=== PATIENT | female | born 2000 | race Caucasian/White ===

== ENCOUNTER 2023-07-17 05:23 | Emergency (ER) | payer OTHER ==
[2023-07-17 05:33] VITALS: BP 131/85; PULSE 88; RESP 19; TEMP 97.7; BMI 39.0
[2023-07-17] MEDS ORDERED: ACETAMINOPHEN 500 MG TABLET (FP) ONE (06:49)
[2023-07-17] MEDS: ACETAMINOPHEN 500 MG TABLET (FP) PO ONE (06:50)
[2023-07-17 07:10] LABS: EPI CELLS 17 /uL (0-25.1); HCG,QUALITATIVE URINE Negative; HYALINE CASTS 0 /uL (0-3.1); PH,URINE 5.5 (5.0-8.0); URINE APPEARANCE CLEAR; URINE BACTERIA 804 /uL (0-1359); URINE BILIRUBIN NEGATIVE (NEGATIVE); URINE COLOR YELLOW; URINE GLUCOSE (UA) NEGATIVE (NEGATIVE); URINE KETONE TRACE (NEGATIVE); URINE LEUK ESTERASE NEGATIVE (NEGATIVE); URINE NITRITE NEGATIVE (NEGATIVE); URINE PROTEIN NEGATIVE (NEGATIVE); URINE RBC 2015 /uL (0-23.9); URINE UROBILINOGEN 0.2 mg/dL (0.2-1.0); URINE WBC 21 /uL (0-25.8)
[2023-07-17] MEDS: LACTATED RINGERS SOLUTION 1000 ML INFUS.BAG IV ONE (08:43)
[2023-07-17 09:02] LABS: BASO % 0.3 % (0-2.0); EOS % 0.1 % (0-4.5); HEMATOCRIT 40.3 % (32.4-45.2); HEMOGLOBIN 13.3 GM/dL (10.7-15.3); LYMPH % 15.1 % (8-40); MCH 29.3 pg (25.7-33.7); MCHC 32.9 g/dl (32.0-36.0); MEAN PLT VOLUME 9.7 fl (7.5-11.1); MONO % 5.1 % (3.8-10.2); NEUT % 79.4 % (42.8-82.8); PLATELET COUNT 245 10^3/uL (134-434); RBC 4.53 M/mm3 (3.60-5.2); RDW 13.8 % (11.6-15.6); WHITE BLOOD COUNT 10.5 K/mm3 (4.0-10.0)
[2023-07-17 09:32] LABS: POTASSIUM 5.7 mmol/L (3.5-5.1)
[2023-07-17 09:35] LABS: BLOOD UREA NITROGEN 17.1 mg/dL (7-18); CALCIUM 8.7 mg/dL (8.5-10.1)
[2023-07-17 09:36] LABS: ALBUMIN 3.6 g/dl (3.4-5.0)
[2023-07-17 09:39] LABS: CREATININE 0.8 mg/dL (0.55-1.3)
[2023-07-17 09:40] LABS: BILIRUBIN,TOTAL 0.5 mg/dL (0.2-1); TOT PROT 7.8 g/dl (6.4-8.2)
[2023-07-17] MEDS ORDERED: TAMSULOSIN HCL 0.4 MG CAP ONE (12:03)
[2023-07-17] MEDS: TAMSULOSIN HCL 0.4 MG CAP PO ONE (12:10)
== END 2023-07-17 12:10 | disposition home or self-care (01) ==
LOC: JER 05:23
DX: R10.31 Right lower quadrant pain (principal); R31.9 Hematuria, unspecified; N20.0 Calculus of kidney
CPT/HCPCS: 36415; 74176-TC; 80053; 81003; 84703; 85025; 87086; 87491; 87591; 87661; 99284-25

== ENCOUNTER 2023-07-22 23:51 | Emergency (ER) | payer OTHER ==
[2023-07-22 23:58] VITALS: BP 121/80; PULSE 94; RESP 18; TEMP 97.7; BMI 35.2
[2023-07-23] MEDS: SODIUM CHLORIDE 0.9% 500 ML INFUS.BAG IV ONE (00:28)
[2023-07-23] MEDS ORDERED: morphine SULFATE 4 MG/ML VIAL ONE (00:30)
[2023-07-23 00:32] LABS: BASO % 0.3 % (0-2.0); EOS % 0.6 % (0-4.5); HEMATOCRIT 38.2 % (32.4-45.2); HEMOGLOBIN 12.7 GM/dL (10.7-15.3); LYMPH % 19.2 % (8-40); MCHC 33.2 g/dl (32.0-36.0); MEAN CELL VOLUME 87.4 fl (80-96); MEAN PLT VOLUME 9.6 fl (7.5-11.1); MONO % 5.5 % (3.8-10.2); NEUT % 74.4 % (42.8-82.8); PLATELET COUNT 225 10^3/uL (134-434); RBC 4.37 M/mm3 (3.60-5.2); RDW 13.9 % (11.6-15.6); WHITE BLOOD COUNT 9.7 K/mm3 (4.0-10.0)
[2023-07-23] MEDS: morphine CARPU-JECT 4 MG/1 ML DISP.SYRIN IVPUSH ONE (00:34)
[2023-07-23 00:50] LABS: POTASSIUM 4.4 mmol/L (3.5-5.1)
[2023-07-23 00:52] LABS: ALBUMIN 3.6 g/dl (3.4-5.0)
[2023-07-23 00:53] LABS: BLOOD UREA NITROGEN 20.4 mg/dL (7-18)
[2023-07-23 00:57] LABS: BILIRUBIN,TOTAL 0.4 mg/dL (0.2-1); TOT PROT 7.3 g/dl (6.4-8.2)
[2023-07-23 01:58] LABS: URINE APPEARANCE CLEAR; URINE BILIRUBIN NEGATIVE (NEGATIVE); URINE COLOR YELLOW; URINE GLUCOSE (UA) NEGATIVE (NEGATIVE); URINE KETONE NEGATIVE (NEGATIVE); URINE LEUK ESTERASE NEGATIVE (NEGATIVE); URINE NITRITE NEGATIVE (NEGATIVE); URINE PROTEIN NEGATIVE (NEGATIVE); URINE UROBILINOGEN 0.2 mg/dL (0.2-1.0)
[2023-07-23 02:01] LABS: HCG,QUALITATIVE URINE Negative
[2023-07-23] MEDS ORDERED: IBUPROFEN 600 MG TABLET (FP) PO ONE (05:02)
[2023-07-23] MEDS ORDERED: LIDOCAINE 4% PATCH TP ONE (05:03)
[2023-07-23] MEDS: IBUPROFEN 400 MG TABLET (FP) PO ONE (05:04)
[2023-07-23] MEDS: LIDOCAINE 5% TOPICAL PATCH TP ONE (05:05)
[2023-07-23] MEDS ORDERED: LIDOCAINE PATCH REMOVAL MC SCH (22:00)
== END 2023-07-23 05:12 | disposition home or self-care (01) ==
LOC: JER 23:51
PROC: 3E033NZ Introduction of Analgesics, Hypnotics, Sedatives into Peripheral Vein, Percutaneous Approach (ICD-10-PCS; principal; 2023-07-23)
DX: R10.9 Unspecified abdominal pain (principal); R30.0 Dysuria; R35.0 Frequency of micturition; A08.4 Viral intestinal infection, unspecified; N20.0 Calculus of kidney; K52.9 Noninfective gastroenteritis and colitis, unspecified; M62.838 Other muscle spasm
CPT/HCPCS: 36415; 74177-TC; 76775-TC; 80053; 81003; 84703; 85025; 87086; 93005; 93010; 99285-25; Q9967

== ENCOUNTER 2023-07-25 09:04 | Emergency (ER) | payer OTHER ==
[2023-07-25 09:18] VITALS: BP 145/71; PULSE 74; RESP 18; TEMP 97.3; BMI 36.1
[2023-07-25] MEDS ORDERED: NAPROXEN 500 MG TABLET ONE (11:10)
[2023-07-25] MEDS: NAPROXEN 500 MG TABLET PO ONE (11:11)
== END 2023-07-25 11:59 | disposition home or self-care (01) ==
LOC: JERFT 09:04
DX: R11.0 Nausea (principal); M54.50 Low back pain, unspecified; L03.012 Cellulitis of left finger
CPT/HCPCS: 99283-25

== ENCOUNTER 2024-08-25 23:36 | Emergency (ER) | payer OTHER ==
[2024-08-25 23:49] VITALS: BP 106/75; PULSE 88; RESP 18; TEMP 98.1; BMI 28.3
[2024-08-26] MEDS ORDERED: AZITHROMYCIN 500 MG TABLET ONE (01:09)
[2024-08-26] MEDS: AZITHROMYCIN 500 MG TABLET PO ONE (01:17)
== END 2024-08-26 01:20 | disposition home or self-care (01) ==
LOC: JER 23:36
DX: J32.9 Chronic sinusitis, unspecified (principal)
CPT/HCPCS: 0241U-QW; 99283-25

== ENCOUNTER 2024-12-19 09:16 | Emergency (ER) | payer OTHER ==
[2024-12-19 09:24] VITALS: BP 150/95; PULSE 81; RESP 18; TEMP 98.5; BMI 38.0
[2024-12-19] MEDS ORDERED: PSEUDOEPHEDRINE HCL 60 MG TABLET ONE (09:46)
[2024-12-19] MEDS ORDERED: ACETAMINOPHEN 500 MG TABLET (FP) ONE (09:47)
[2024-12-19] MEDS: ACETAMINOPHEN 500 MG TABLET (FP) PO ONE (09:50)
[2024-12-19] MEDS: PSEUDOEPHEDRINE HCL 30 MG TABLET PO ONE (09:50)
[2024-12-19 10:01] LABS: THROAT:GRP A STREP NOT DETECTED (NOTDETECTED)
[2024-12-19 12:08] LABS: HIV INTERPRETATION NEGATIVE (NEGATIVE)
[2024-12-19 16:45] LABS: HCV DIAGNOSTIC IN-HOUSE W/RFLX NON-REACTIVE (NONREACTIVE)
== END 2024-12-19 10:25 | disposition home or self-care (01) ==
LOC: JERFT 09:16
DX: J01.90 Acute sinusitis, unspecified (principal); R09.81 Nasal congestion; M79.10 Myalgia, unspecified site; R68.83 Chills (without fever); R42 Dizziness and giddiness; J02.9 Acute pharyngitis, unspecified
CPT/HCPCS: 36415; 86803; 87389; 87637-QW; 87651; 99283-25

== ENCOUNTER 2024-12-28 15:13 | Emergency (ER) | payer OTHER ==
[2024-12-28 15:29] VITALS: BP 140/92; PULSE 101; RESP 18; TEMP 98.7; BMI 38.0
[2024-12-28 16:28] LABS: ABSOLUTE IMMATURE GRANULOCYTES 0.03 x10^3/uL (0.0-0.031); BASOPHILS # 0.04 x10^3/uL (0.01-0.08); EOSINOPHIL % 0.2 % (0.7-5.8); EOSINOPHILS # 0.02 x10^3/uL (0.04-0.36); MCHC 32.2 g/dl (32.2-35.5); MEAN CELL VOLUME 88.5 fl (79.4-94.8); MEAN PLT VOLUME 11.4 fl (9.4-12.3); MONOCYTE # 0.43 x10^3/uL (0.24-0.86); MONOCYTE % 3.8 % (4.7-12.5); RDW 12.5 % (12.1-16.5)
[2024-12-28 16:38] LABS: INR 1.03 (0.83-1.09); PROTHROMBIN TIME (PATIENT) 11.2 SEC (9.7-13.0)
[2024-12-28 16:41] LABS: ACTIVATED PTT 25.3 SECONDS (25.2-36.5)
[2024-12-28 17:05] LABS: GLUCOSE,RANDOM 77.0 mg/dL (74-106); TOT PROT 7.4 g/dl (6.4-8.2)
[2024-12-28 17:06] LABS: CO2 22.0 mmol/L (21-32)
[2024-12-28 17:08] LABS: ALK PHOS 58.0 U/L (40-150)
[2024-12-28 17:10] LABS: SGPT/ALT 13.0 U/L (0-55)
[2024-12-28 17:11] LABS: CREATININE 0.67 mg/dL (0.55-1.3); SGOT/AST 20.0 U/L (5-34)
[2024-12-28 17:28] LABS: HCV DIAGNOSTIC IN-HOUSE W/RFLX NON-REACTIVE (NONREACTIVE); HIV INTERPRETATION NEGATIVE (NEGATIVE)
== END 2024-12-28 18:05 | disposition home or self-care (01) ==
LOC: JERFT 15:13 → JER 15:13 → JERFT 18:05
DX: I83.11 Varicose veins of right lower extremity with inflammation (principal); S80.11XA Contusion of right lower leg, initial encounter; S80.12XA Contusion of left lower leg, initial encounter; S70.11XA Contusion of right thigh, initial encounter; S70.12XA Contusion of left thigh, initial encounter; L29.9 Pruritus, unspecified; X58.XXXA Exposure to other specified factors, initial encounter
CPT/HCPCS: 36415; 80053; 85025; 85610; 85730; 86803; 87389; 99283-25